=== PATIENT | male | born 1995 ===

== ENCOUNTER → 2018-08-10 | Emergency (ER) | payer OTHER ==
[~2018-08-10] VITALS: Ht 175.3 cm; Wt 74.4 kg
[~2018-08-10] MED LIST: CYCLOBENZAPRINE10 MG PO; KETO10TA2 PO; NABUMETONE500 MG PO; PERCOCET 5/3251 TAB PO
== END | disposition home or self-care (01) ==
LOC: ER 23:03
DX: S13.4XXA Sprain of ligaments of cervical spine, initial encounter (principal); V49.9XXA Car occupant (driver) (passenger) injured in unspecified traffic accident, initial encounter; Y93.89 Activity, other specified; Y92.488 Other paved roadways as the place of occurrence of the external cause; Y99.8 Other external cause status

== ENCOUNTER 2019-01-10 10:56 | Outpatient (CLI) | payer OTHER | END 2019-01-10 15:56 | disposition home or self-care (01) | LOC: RAD 10:56 | DX: M21.6X9 Other acquired deformities of unspecified foot (principal) ==

== ENCOUNTER 2021-10-21 12:55 | Emergency (ER) | payer OTHER ==
[~2021-10-21] VITALS: Ht 172.7 cm; Wt 76.2 kg
== END 2021-10-21 19:22 | disposition home or self-care (01) ==
LOC: ER 12:55
DX: R10.31 Right lower quadrant pain (principal)